=== PATIENT | female | born 1940 | race Hispanic/Latino ===

== ENCOUNTER → 2018-06-19 | Outpatient (CLI) | payer MEDICARE ==
[~2018-06-19] MED LIST: BENZ-51 PO; CETI10TA57 PO; CHOL20004 PO; DICL50TA7 PO; DULO60CA63 PO; ESOM40CA PO; FESO8TAB PO; IBUP-2070 PO; IPRA4AER IH; LEVO50 PO; MEMA1TAB2 PO; METO-409 PO; MONT10TA24 PO; SIMV20TA6 PO
== END | disposition home or self-care (01) ==
LOC: RAH 14:29
PROVIDERS: ATTEND Orthopaedic Surgery
DX: M71.22 Synovial cyst of popliteal space [Baker], left knee (principal); M23.92 Unspecified internal derangement of left knee; I10 Essential (primary) hypertension; E78.5 Hyperlipidemia, unspecified; E78.00 Pure hypercholesterolemia, unspecified; E03.9 Hypothyroidism, unspecified
CPT/HCPCS: 73721

== ENCOUNTER → 2018-07-11 | Outpatient (CLI) | payer MEDICARE | END | disposition home or self-care (01) | LOC: SHCH 13:50 | PROVIDERS: ATTEND Internal Medicine Cardiovascular Disease | DX: I65.23 Occlusion and stenosis of bilateral carotid arteries (principal) | CPT/HCPCS: 93880 ==

== ENCOUNTER → 2019-06-26 | Outpatient (CLI) | payer MEDICARE ==
[~2019-06-26] MED LIST changes: -DULO60CA63 PO; +DULO60CA64 PO
== END | disposition home or self-care (01) ==
LOC: SHCH 10:15
PROVIDERS: ATTEND Internal Medicine Cardiovascular Disease
DX: I73.9 Peripheral vascular disease, unspecified (principal); I87.2 Venous insufficiency (chronic) (peripheral); K21.9 Gastro-esophageal reflux disease without esophagitis
CPT/HCPCS: 93925; 93970

== ENCOUNTER → 2019-07-28 | Outpatient (CLI) | payer MEDICARE ==
[~2019-07-28] MED LIST changes: +SIMV-43 PO; -SIMV20TA6 PO
== END | disposition home or self-care (01) ==
LOC: SHCH 10:10
PROVIDERS: ATTEND Internal Medicine Cardiovascular Disease
DX: I48.0 Paroxysmal atrial fibrillation (principal)
CPT/HCPCS: 93306

== ENCOUNTER 2019-09-02 11:02 | Emergency (ER) | payer MEDICARE ==
[~2019-09-02 11:02] MED LIST changes: -AMINOPHYLLINE 250MG/10 ML VIAL IV SCH; -REGADENOSON 0.4 MG/5 ML PF SYG IVP SCH
[2019-09-02 11:26] LABS: BASOPHILS % (AUTO) 0.9 % (0.0-5.0); EOSINOPHILS % (AUTO) 5.5 % (0.0-8.0); HEMATOCRIT 38.7 % (36-48); LYMPHOCYTES % (AUTO) 22.8 % (21.0-51.0); MEAN CORPUSCULAR HEMOGLOBIN 29.8 pg (27.0-33.0); MEAN CORPUSCULAR HGB CONC 32.8 g/dL (32.0-36.0); MEAN CORPUSCULAR VOLUME 90.8 fL (79-99); MONOCYTES % (AUTO) 9.6 % (3.0-13.0); NEUTROPHILS % (AUTO) 60.7 % (40.0-77.0); PLATELET COUNT (AUTO) 249 K/uL (130-400); RED BLOOD CELL COUNT(AUTO) 4.26 MIL/uL (4.00-5.50); RED CELL DISTRIBUTION WIDTH 13.1 % (11.0-15.5); WHITE BLOOD COUNT (AUTO) 7.8 K/uL (4.8-10.8)
[2019-09-02 11:32] LABS: CREATININE 0.7 mg/dL (0.5-1.5); POTASSIUM 3.5 mmol/L (3.5-5.1)
[2019-09-02 11:38] LABS: ALBUMIN 3.6 g/dL (3.5-5.0); BILIRUBIN,TOTAL 0.3 mg/dL (0.2-1.0); TOTAL PROTEIN, SERUM 7.7 g/dL (6.0-8.3)
[2019-09-02 11:41] LABS: INR 0.97 (0.85-1.15); PARTIAL THROMBOPLASTIN TIME 25.4 SEC (26.3-35.5); PROTHROMBIN TIME 10.2 SEC (9.6-11.6)
== END 2019-09-02 15:39 | disposition home or self-care (01) ==
LOC: EDH 11:02
DX: R00.2 Palpitations (principal); I10 Essential (primary) hypertension; E78.5 Hyperlipidemia, unspecified; E05.90 Thyrotoxicosis, unspecified without thyrotoxic crisis or storm; K21.9 Gastro-esophageal reflux disease without esophagitis; M19.90 Unspecified osteoarthritis, unspecified site; Z90.49 Acquired absence of other specified parts of digestive tract; Z90.710 Acquired absence of both cervix and uterus; Z98.890 Other specified postprocedural states; Z88.5 Allergy status to narcotic agent; Z88.1 Allergy status to other antibiotic agents
CPT/HCPCS: 36415; 71045; 80053; 82550; 83880; 84484; 85025; 85610; 85730; 93005

== ENCOUNTER → 2019-09-02 | Outpatient (CLI) | payer MEDICARE ==
[2019-09-02] VITALS (10 sets, daily range): BP systolic 128–163; BP diastolic 61–84
[~2019-09-02] VITALS: Ht 152.4 cm; Wt 74.8 kg
[~2019-09-02] MED LIST changes: +AMINOPHYLLINE 250MG/10 ML VIAL IV SCH; +REGADENOSON 0.4 MG/5 ML PF SYG IVP SCH
--- NOTE | 2019-09-02 14:56 | NUR ---
APPROXIMATELY 3 MIN AFTER ADMINISTRATION OF LEXISCAN, PT PRESENTED WITH SEIZURE LIKE MOVEMENTS. I ADMINISTERED 25MG OF AMINOPHYLLINE IV OVER 60 SECONDS AT 1032. SHAKING STOPPED FOR A BRIEF PERIOD, ABOUT 45 SECONDS, AND THEN BEGAN AGAIN NON STOP. I ADMINISTERED A SECOND DOSE OF AMINOPHYLLINE 25MG IV OVER 60 SECONDS AT 1034. THERE WAS NO CHANGE IN THE SEIZURE LIKE MOVEMENTS NOTED. THE PT REMAINED ALERT AND ORIENTED WITH ALL VITAL SIGNS STABLE, THERE WERE NO C/O PAIN OR DISCOMFORT. THE PATIENTS DAUGHTER WAS PRESENT AT THE BEDSIDE DURING THE ENTIRE EVENT. 911 WAS CALLED AND EMS ARRIVED 13 MIN AFTER LEXISCAN WAS GIVEN. PT WAS TAKEN TO THE ER AT [facility] [place] PER EMS AT 1045
== END | disposition home or self-care (01) ==
LOC: SHCH 07:56
PROVIDERS: ATTEND Internal Medicine Cardiovascular Disease
DX: R06.09 Other forms of dyspnea (principal); I48.0 Paroxysmal atrial fibrillation
CPT/HCPCS: 78452; 93017; 96374; A9500 ×2; J2785; J0280

== ENCOUNTER 2020-07-16 11:53 | Day surgery (SDC) | payer MEDICARE ==
[2020-07-15 13:57] VITALS: BP 123/53
[~2020-07-16] VITALS: Ht 154.9 cm; Wt 72.4 kg
[2020-07-16] VITALS (11 sets, daily range): BP systolic 133–153; BP diastolic 61–77
[~2020-07-16 11:53] MED LIST changes: -MONT10TA24 PO; +MONT10TA26 PO
--- NOTE | 2020-07-16 12:20 | NUR ---
preop pt laying in stretcher in no distress. pt very forgetful. daughter called in to stay with pt for interview. pt oriented to room and call light. will continue to monitor pt.
[2020-07-16] MEDS ORDERED: LACTATED RINGERS 1000ML 1,000 ML IV ONE (12:53)
[2020-07-16] MEDS ORDERED: IOPAMIDOL 10 ML VIAL ONE (12:59)
[2020-07-16] MEDS ORDERED: MIDAZOLAM HCL 1 MG/ML 2ML VIAL ONE (13:11)
[2020-07-16] MEDS ORDERED: BUPIVACAINE/PF 0.25% 30ML VIAL IJ ONE (13:13)
[2020-07-16] MEDS ORDERED: LIDOCAINE HCL 1% 20 ML VIAL ONE (13:13)
[2020-07-16] MEDS ORDERED: MIRA50TA PO (13:50)
[2020-07-16] MEDS ORDERED: MIRT15TA6 PO (13:50)
[2020-07-16] MEDS ORDERED: LOSA25TA41 PO (13:50)
[2020-07-16] MEDS ORDERED: SOLI10TA PO (13:50)
[2020-07-16] MEDS ORDERED: MEMA10TA55 PO (13:50)
[2020-07-16] MEDS ORDERED: PRAV20TA4 PO (13:50)
[2020-07-16] MEDS ORDERED: QUET50TA79 PO (13:50)
[2020-07-16] MEDS ORDERED: ASPI-1197 PO (13:50)
[2020-07-16] MEDS ORDERED: LINA145C PO (13:50)
[2020-07-16] MEDS ORDERED: FAMO40TA7 PO (13:50)
[2020-07-16] MEDS ORDERED: RIVA4.5C13 PO (13:50)
--- NOTE | 2020-07-16 14:35 | NUR ---
DAY PT ARRIVAL PT IN STRETCHER IN NO APPARENT DISTRESS, DAUGHTER CALLED TO BEDSIDE.
--- NOTE | 2020-07-16 15:10 | NUR ---
DAY PT DC PT WHEELED TO FRONT ER LOBBY, INSTRUCTIONS GIVEN TO FAMILY AND PT.
== END 2020-07-16 15:15 ==
LOC: DAH 11:53
PROVIDERS: ATTEND Family Medicine Sports Medicine
DX: M46.1 Sacroiliitis, not elsewhere classified (principal); Z20.828 Contact with and (suspected) exposure to other viral communicable diseases; M16.0 Bilateral primary osteoarthritis of hip; M53.3 Sacrococcygeal disorders, not elsewhere classified; M76.32 Iliotibial band syndrome, left leg; M70.62 Trochanteric bursitis, left hip; I10 Essential (primary) hypertension; E03.9 Hypothyroidism, unspecified; E78.5 Hyperlipidemia, unspecified; K21.9 Gastro-esophageal reflux disease without esophagitis; M19.90 Unspecified osteoarthritis, unspecified site; I48.91 Unspecified atrial fibrillation; Z98.890 Other specified postprocedural states; Z90.710 Acquired absence of both cervix and uterus; Z90.49 Acquired absence of other specified parts of digestive tract; Z79.899 Other long term (current) drug therapy
CPT/HCPCS: 36415; 72202; 93005; A4215 ×2; A4216; A4221; A4222; A4223 ×2; A4663; A6260; C9803; G0260; J1040; J2250; J3490; J7120; Q9966; U0003

== ENCOUNTER → 2022-08-01 | Outpatient (CLI) | payer MEDICARE ==
[~2022-08-01] MED LIST changes: +ASPI-1197 PO; -BENZ-51 PO; -CHOL20004 PO; -DICL50TA7 PO; +FAMO40TA7 PO; -FESO8TAB PO; -IBUP-2070 PO; -IPRA4AER IH; +LINA145C PO; +LOSA25TA41 PO; +MEMA10TA55 PO; -MEMA1TAB2 PO; -METO-409 PO; +MIRA50TA PO; +MIRT-22 PO; -MONT10TA26 PO; +PRAV20TA4 PO; +QUET50TA79 PO; +RIVA4.5C17 PO; -SIMV-43 PO; +SOLI10TA PO
== END | disposition home or self-care (01) ==
LOC: SHCH 13:31
PROVIDERS: ATTEND Internal Medicine Cardiovascular Disease
DX: R06.09 Other forms of dyspnea (principal); R07.9 Chest pain, unspecified
CPT/HCPCS: 93306

== ENCOUNTER → 2023-02-17 | Outpatient (CLI) | payer MEDICARE ==
[~2023-02-17] MED LIST changes: -QUET50TA79 PO; +QUET50TA93 PO
== END | disposition home or self-care (01) ==
LOC: SHCH 12:30
PROVIDERS: ATTEND Internal Medicine Cardiovascular Disease
DX: I87.2 Venous insufficiency (chronic) (peripheral) (principal)
CPT/HCPCS: 93970

== ENCOUNTER → 2023-09-12 | Outpatient (CLI) | payer OTHER, MEDICARE | END | disposition home or self-care (01) | LOC: RAH 07:00 | PROVIDERS: ATTEND Internal Medicine | DX: R63.4 Abnormal weight loss (principal) | CPT/HCPCS: 78264; A9541 ==

== ENCOUNTER → 2023-09-13 | Outpatient (CLI) | payer OTHER, MEDICARE | END | disposition home or self-care (01) | LOC: RAH 08:36 | PROVIDERS: ATTEND Internal Medicine | DX: K21.9 Gastro-esophageal reflux disease without esophagitis (principal); R63.4 Abnormal weight loss; R11.0 Nausea; Z90.49 Acquired absence of other specified parts of digestive tract | CPT/HCPCS: 74240 ==

== ENCOUNTER 2023-09-20 05:52 | Day surgery (SDC) | payer OTHER, MEDICARE ==
[~2023-09-20] VITALS: Ht 152.4 cm; Wt 61.2 kg
[2023-09-20] VITALS (9 sets, daily range): BP systolic 93–119; BP diastolic 37–52; PULSE 58–70; RESP 12–15
[~2023-09-20 05:52] MED LIST changes: -ASPI-1197 PO; -CETI10TA57 PO; -DULO60CA64 PO; -LINA145C PO; +LOPE2 PO; -LOSA25TA41 PO; -MEMA10TA55 PO; +METO-296 PO; +METO-408 PO; -MIRA50TA PO; -PRAV20TA4 PO; +PROM25TA7 PO; -QUET50TA93 PO; -RIVA4.5C17 PO; -SOLI10TA PO
[2023-09-20] MEDS ORDERED: 0.9%NACL 1000ML 1,000 ML IV ONE (06:16)
[2023-09-20] MEDS ORDERED: PROPOFOL 10 MG/ML 20ML VIAL IV ONE (07:12)
[2023-09-20] MEDS ORDERED: LIDOCAINE HCL 1% 20 ML VIAL ONE (07:12)
[2023-09-25] MEDS ORDERED: NITR100C9 PO (20:38)
== END 2023-09-20 08:35 | disposition home or self-care (01) ==
LOC: DAH 05:52 → ENDO 05:52
PROVIDERS: ATTEND Internal Medicine
DX: R63.4 Abnormal weight loss (principal); K29.50 Unspecified chronic gastritis without bleeding; K21.9 Gastro-esophageal reflux disease without esophagitis; R63.8 Other symptoms and signs concerning food and fluid intake; R63.0 Anorexia; K59.04 Chronic idiopathic constipation; K57.30 Diverticulosis of large intestine without perforation or abscess without bleeding; I10 Essential (primary) hypertension; E78.5 Hyperlipidemia, unspecified; F32.A Depression, unspecified; I25.10 Atherosclerotic heart disease of native coronary artery without angina pectoris; Z86.010 Personal history of colon polyps; Z88.5 Allergy status to narcotic agent; Z98.890 Other specified postprocedural states; Z87.19 Personal history of other diseases of the digestive system; Z82.49 Family history of ischemic heart disease and other diseases of the circulatory system; Z80.9 Family history of malignant neoplasm, unspecified; Z79.899 Other long term (current) drug therapy; Z90.49 Acquired absence of other specified parts of digestive tract; Z90.710 Acquired absence of both cervix and uterus; Z88.8 Allergy status to other drugs, medicaments and biological substances; Z79.82 Long term (current) use of aspirin; Z88.6 Allergy status to analgesic agent; Z68.24 Body mass index [BMI] 24.0-24.9, adult
CPT/HCPCS: 43239; J7030 ×2; J2704; A4620; A4215 ×2; A4223; A7002; A4222; A4221; A4663; A4606; J3490

== ENCOUNTER 2023-10-21 17:11 | Emergency (ER) | payer OTHER, MEDICARE ==
[~2023-10-21] VITALS: Ht 160 cm; Wt 59.0 kg
[~2023-10-21 17:11] MED LIST changes: +POTA20PA32 PO
[2023-10-21 17:18] VITALS: BP 106/54; PULSE 80; RESP 16
[2023-10-21] MEDS ORDERED: ACETAMINOPHEN 500 MG TABLET PO ONE (19:00)
== END 2023-10-21 20:36 | disposition home or self-care (01) ==
LOC: EDH 17:11
DX: S16.1XXA Strain of muscle, fascia and tendon at neck level, initial encounter (principal); S00.83XA Contusion of other part of head, initial encounter; I10 Essential (primary) hypertension; E03.9 Hypothyroidism, unspecified; F03.90 Unspecified dementia, unspecified severity, without behavioral disturbance, psychotic disturbance, mood disturbance, and anxiety; I48.91 Unspecified atrial fibrillation; J44.9 Chronic obstructive pulmonary disease, unspecified; K21.9 Gastro-esophageal reflux disease without esophagitis; M47.812 Spondylosis without myelopathy or radiculopathy, cervical region; Z79.899 Other long term (current) drug therapy; Z90.49 Acquired absence of other specified parts of digestive tract; Z90.710 Acquired absence of both cervix and uterus; Z98.890 Other specified postprocedural states; Z88.0 Allergy status to penicillin; Z88.1 Allergy status to other antibiotic agents; Z88.5 Allergy status to narcotic agent; W06.XXXA Fall from bed, initial encounter; Y93.89 Activity, other specified; Y92.89 Other specified places as the place of occurrence of the external cause; Y99.8 Other external cause status
CPT/HCPCS: 70450; 72125

== ENCOUNTER 2024-07-01 10:04 | Day surgery (SDC) | payer OTHER, MEDICARE ==
[2024-07-01] VITALS (11 sets, daily range): BP systolic 122–167; BP diastolic 41–79; PULSE 58–78; RESP 15–18; TEMP 96.6–97.9
[~2024-07-01] VITALS: Ht 154.9 cm; Wt 71.2 kg
[2024-07-01] MEDS ORDERED: DONE5TAB33 PO (10:31)
[2024-07-01] MEDS ORDERED: ALBU18HF7 IH (10:31)
[2024-07-01] MEDS ORDERED: ACET-2893 PO (10:31)
[2024-07-01] MEDS ORDERED: METO-408 PO (10:31)
[2024-07-01] MEDS ORDERED: MIRA50TA PO (10:31)
[2024-07-01] MEDS ORDERED: METO5TAB2 PO (10:31)
[2024-07-01] MEDS ORDERED: DICY20TA3 PO (10:31)
[2024-07-01] MEDS ORDERED: PRAV20TA4 PO (10:31)
[2024-07-01] MEDS ORDERED: proPOFol 10 MG/ML 20ML VIAL IV ONE (11:52)
== END 2024-07-01 13:24 | disposition home or self-care (01) ==
LOC: DAH 10:04 → ENDO 10:04
PROVIDERS: ATTEND Internal Medicine
DX: R13.12 Dysphagia, oropharyngeal phase (principal); K94.20 Gastrostomy complication, unspecified; R14.0 Abdominal distension (gaseous); K31.84 Gastroparesis; K59.04 Chronic idiopathic constipation; K57.30 Diverticulosis of large intestine without perforation or abscess without bleeding; I10 Essential (primary) hypertension; F03.90 Unspecified dementia, unspecified severity, without behavioral disturbance, psychotic disturbance, mood disturbance, and anxiety; E78.5 Hyperlipidemia, unspecified; F32.A Depression, unspecified; K21.9 Gastro-esophageal reflux disease without esophagitis; Z88.0 Allergy status to penicillin; Z88.1 Allergy status to other antibiotic agents; Z88.5 Allergy status to narcotic agent; Z90.49 Acquired absence of other specified parts of digestive tract; Z90.710 Acquired absence of both cervix and uterus; Z79.899 Other long term (current) drug therapy
CPT/HCPCS: 43246; J2704; A4620; A4215 ×2; A4223; A4657; A4222; A4221; A4663; J7030; A4606; J3490

== ENCOUNTER → 2025-03-04 | Outpatient (CLI) | payer OTHER, MEDICAID ==
[~2025-03-04] MED LIST changes: +ACET-2893 PO; +ALBU18HF7 IH; +DICY20TA3 PO; +DONE5TAB33 PO; -LOPE2 PO; -METO-296 PO; +METO5TAB2 PO; +MIRA50TA PO; -POTA20PA32 PO; +PRAV20TA4 PO; -PROM25TA7 PO
--- NOTE | 2025-03-04 13:33 | HMCIMG ---
Nuclear medicine gastric emptying study HISTORY: Gastroparesis. COMPARISON: No relevant prior studies. RADIOPHARMACEUTICAL: 1 mCi of technetium 99 sulfur colloid TECHNIQUE: Dynamic computer imaging and serial static images were performed over the anterior abdomen for 1 hour. Static images obtained up to 2 hours. By region of interest computer analysis, a time/activity curve for the stomach was generated and a T 1/2 for clearance of activity was determined. FINDINGS: Review of dynamic images does not demonstrate any gastroesophageal reflux. The normal pattern of gastric emptying is appreciated. T 1/2: 434 minutes (normal 55-90 minutes). Percent empty at 1 hour: 13 percent (less than 40 percent at one hour is consistent with delayed emptying). IMPRESSION: Gastroparesis
== END | disposition home or self-care (01) ==
LOC: RAH 10:38
PROVIDERS: ATTEND Internal Medicine Gastroenterology
DX: K31.84 Gastroparesis (principal); R68.81 Early satiety
CPT/HCPCS: 78264; A9541

== ENCOUNTER → 2025-07-26 | Emergency (ER) | payer OTHER, MEDICAID ==
[~2025-07-26] VITALS: Ht 157.5 cm; Wt 77.1 kg
[~2025-07-26] MED LIST changes: -ACET-2893 PO; +ACET-3797 PO; +METH-662 PO; -PRAV20TA4 PO; +PRAV20TA59 PO
--- NOTE | 2025-07-26 21:59 | HMCIMG ---
EXAM: CT Head Without IV contrast. CLINICAL HISTORY: Patient presents after a fall with a forehead hematoma. TECHNIQUE: Axial computed tomography images of the head/brain without intravenous contrast. COMPARISON: None provided. FINDINGS: BRAIN: Diffuse cerebral atrophy is characterized by prominent cortical sulci, basal cisterns, and bilateral sylvian fissures. Periventricular hypodensities are concerning for chronic microangiopathic ischemic changes. No acute hemorrhage, mass lesion, or CT evidence of acute territorial infarct. No midline shift or extra-axial collection. VENTRICLES: No hydrocephalus. ORBITS: Unremarkable. SINUSES AND MASTOIDS: The paranasal sinuses and mastoid air cells are clear. BONES: No fracture. SOFT TISSUES: Left frontal scalp hematoma measuring 0.7 cm. IMPRESSION: No acute intracranial abnormality. Left frontal scalp hematoma measuring 0.7 cm. Diffuse cerebral atrophy with mild chronic small vessel ischemic disease. /[place]
[2025-07-26] MEDS: LIDOCAINE HCL 1% 20 ML VIAL INJ ONE (22:02)
--- NOTE | 2025-07-26 22:08 | NUR ---
FINGER SPLINTED, PT TOLERATED WELL
--- NOTE | 2025-07-26 22:18 | HMCIMG ---
EXAM: CT Cervical Spine Without IV contrast. CLINICAL HISTORY: Patient presents after a fall with a forehead hematoma. TECHNIQUE: Axial computed tomography images of the cervical spine without intravenous contrast. Sagittal and coronal reformatted images were generated. COMPARISON: None provided. FINDINGS: ALIGNMENT: Bony alignment is anatomic. DEGENERATIVE CHANGES: Multilevel mild spondylotic changes with small marginal osteophytes at multiple levels, uncovertebral hypertrophy, and facet joint arthropathy. Anterior cervical fixation at the C5???C6 level with an intervertebral disc spacer in place at the C5???C6 intervertebral disc space. Partial fusion of the C6 and C7 vertebrae with a rudimentary C6???C7 intervertebral disc. Degenerative calcification along the atlantoaxial joint, posterior margin of the odontoid process, cruciform ligament, and tectorial membrane. Nuchal and supraspinous ligament calcification at the C7???T1 level. SOFT TISSUES: The prevertebral soft tissues are within normal limits. Degenerative calcifications are noted in the bilateral temporomandibular joint discs. BONES: No acute fracture or aggressive-appearing osseous lesion. IMPRESSION: No acute cervical spine fracture or malalignment. Postsurgical anterior cervical fixation at the C5???C6 level with an intervertebral disc spacer in place. Partial fusion of the C6 and C7 vertebrae with a rudimentary C6???C7 intervertebral disc. Multilevel mild cervical spondylosis with uncovertebral hypertrophy and facet arthropathy. Degenerative calcification along the atlantoaxial joint and associated ligaments. /[place]
--- NOTE | 2025-07-26 23:11 | HMCIMG ---
EXAM: CR Left Wrist, 3 views. CLINICAL HISTORY: Trauma. COMPARISON: None provided. FINDINGS: No acute fracture or aggressive appearing osseous lesion. The carpal bones demonstrate normal alignment. Mild osteoarthritis. Diffuse osteopenia. Articular cartilage calcification in the radiocarpal and intercarpal joints. The soft tissues are unremarkable. IMPRESSION: 1. No acute fracture or aggressive osseous lesion. 2. Mild osteoarthritis with diffuse osteopenia. 3. Articular cartilage calcification in the radiocarpal and intercarpal joints. /[place]
--- NOTE | 2025-07-26 23:14 | HMCIMG ---
EXAM: CR Left Hand, 3 views. CLINICAL HISTORY: Trauma, to rule out a fifth finger fracture. COMPARISON: None provided. FINDINGS: Anterior subluxation of the proximal interphalangeal joint of the fifth digit. No acute fracture or aggressive appearing osseous lesion. Mild osteoarthritis and diffuse osteopenia. Articular cartilage calcification in the radiocarpal, intercarpal, and 1st to 3rd metacarpophalangeal joints. The soft tissues are unremarkable. IMPRESSION: 1. Anterior subluxation of the proximal interphalangeal joint of the fifth digit. 2. No acute fracture or aggressive appearing osseous lesion. 3. Mild osteoarthritis and diffuse osteopenia. 4. Articular cartilage calcification in the radiocarpal, intercarpal, and 1st to 3rd metacarpophalangeal joints. /[place]
--- NOTE | 2025-07-26 23:25 | ERN ---
General Chief Complaint: Mechanical Fall Stated Complaint: FALL Time Seen by MD: 21:08 History of Present Illness Initial Comments Patient is an 85-year-old female with a extensive past medical history here for evaluation of a witnessed fall at home. As per daughter who was at bedside, patient was getting up and walking when she had a mechanical fall tripped and fell forward hitting her head on the floor. States that she did not lose consciousness and cried immediately at that time. She presents today with a left forehead injury as well as a left 5th finger pain/dislocation. This incident happened just prior to arrival. No fever no cough no shortness a breath. No nausea vomiting diarrhea. No dizziness prior to the fall. Allergies: Coded Allergies: Penicillins (Unverified Allergy, Mild, RASH, 09/25/23) codeine (Verified Allergy, Unknown, 09/25/23) levofloxacin (Verified Allergy, Unknown, 09/25/23) Home Meds Reported Medications Albuterol Sulfate (Ventolin Hfa) 90 Mcg Hfa.aer.ad, 18 GM IH AM, INHALER 07/01/24 Mirabegron (Myrbetriq) 50 Mg Tab.er.24h, 50 MG PO HS, TAB 07/01/24 Pravastatin Sodium (Pravastatin Sodium) 20 Mg Tablet, 20 MG PO AM, TAB 07/01/24 Donepezil HCl (Donepezil HCl) 5 Mg Tablet, 5 MG PO AM, TAB 07/01/24 Acetaminophen (Acetaminophen ER) 650 Mg Tablet.er, 650 MG PO BID, TAB 07/01/24 Dicyclomine HCl (Dicyclomine HCl) 20 Mg Tablet, 20 MG PO QID, TAB 07/01/24 Metoprolol Succinate (Metoprolol Succinate) 25 Mg Tab.er.24h, 25 MG PO AM, TAB 07/01/24 Metoclopramide HCl (Metoclopramide HCl) 5 Mg Tablet, 5 MG PO BID, TAB 07/01/24 Mirtazapine (Mirtazapine) 15 Mg Tablet, 15 MG PO HS, TAB 07/16/20 Famotidine (Famotidine) 40 Mg Tablet, 40 MG PO HS, TAB 07/16/20 Esomeprazole Magnesium (Nexium) 40 Mg Capsule.dr, 40 MG PO AM, CAP 02/12/16 Levothyroxine Sodium (Levothroid/Synthroid) 50 Mcg Tab, 25 MCG PO ACBKFST, TAB 02/12/16 Past Medical History Past Medical History: A-Fib, Anxiety, Bipolar, COPD, Dementia, Depression, Diverticulitis, GERD, High Cholesterol, Hypertension, Hypothyroid, Renal Disese, UTI Medical History Other: CHRONIC PAIN, NEUROPATHY, GASTROPARESIS,FEEDING TUBE Past Surgical History: Hysterectomy, Cholecystectomy Surgical History Other: BACK, COLON RESECTION, CATARACT,LT HAND, NECK, LT ANKLE, SPINX2, B SHOULDER Female( History) History: Not Applicable Review of Systems: was completed, & the rest were negative. Physical Exam General Appearance: (+) no apparent distress Orientation: (+) alert Head/Face Trauma: Yes (Left forehead shows a 3 x 4-1/2 cm area of ecchymosis with tenderness to palpation. No underlying crepitus. No active bleeding.) Eye: bilateral eye normal inspection, bilateral eye PERRL, bilateral eye EOMI Ear, Nose, Throat: (+) hearing grossly normal, (+) normal ENT inspection, (+) moist mucous membraine, (+) normal pharynx Neck: (+) normal inspection, (+) supple Respiratory: (+) chest non-tender, (+) lungs clear Heart: (+) regular; (-) murmur Gastrointestinal: (+) soft, (+) non-tender Extremities: (+) other (Left 5th finger noted to have mild medial deviation at the area of the phalanges. Ecchymosis noted) Neurologic/Psychiatric: (+) normal speech, (+) no motor defecits MDM 85-year-old female here for evaluation of fall. She is noted to have a contusion/ecchymosis to her forehead and a left finger injury. CT head negative. CT C-spine negative. The C-spine was cleared by me. We will discharge home at this time. We will also give appropriate pain medication here. ED Course Orders Procedure Category Date Status Time Hand 3+Vws Lt RAD 07/26/25 Taken 21:12 Wrist Comp 3+Vws Lt RAD 07/26/25 Resulted 21:12 Ct Head/Brain W/O CT 07/26/25 Resulted Contrast 21:12 Ct Cervical Spine W/O CT 07/26/25 Resulted Contrast 21:12 Acetaminophen 500mg PHA 07/26/25 Complete Tab (Tylenol 500mg T 21:30 Lidocaine Hcl 1% 20ml PHA 07/26/25 Complete Vial (Lidocaine Hc 22:00 Finger(S) 2+Vws Lt RAD 07/26/25 Taken 22:05 Lidocaine (Lidoderm PHA 07/26/25 Logged Patch 5%) 23:30 Methocarbamol PHA 07/26/25 Logged (Methocarbamol) 23:30 Current Medications Medications (Trade) Dose Ordered Sig/[place] Route PRN Reason Start Time Stop Time Status Last Admin Dose Admin Acetaminophen (TYLenol 500MG TAB) 500 mg ONCE ONCE PO 07/26/25 21:30 07/26/25 21:31 DC 07/26/25 21:32 Lidocaine (Lidoderm Patch 5%) 1 patch ONCE ONCE TP 07/26/25 23:30 07/26/25 23:31 UNV Lidocaine HCl (Lidocaine HCl 1% 20ml Vial) ONCE ONCE INJ 07/26/25 22:00 07/26/25 22:01 DC 07/26/25 22:02 Methocarbamol (methoCARBamol) 750 mg ONCE PO 07/26/25 23:30 08/25/25 23:29 UNV Vital Signs Date Time Temp Pulse Resp B/P (MAP) Pulse Ox O2 Delivery O2 Flow Rate FiO2 07/26/25 22:27 97.9 71 16 152/64 97 Room Air* 0 21 07/26/25 21:26 97.9 69 16 165/62 97 Room Air* 0 21 07/26/25 20:48 97.9 69 16 165/62 97 Room Air Procedure Dictation Left finger 5th phalanges dislocation noted on x-ray. I reduced the finger after cleaning the area and injecting lidocaine. Digital block was performed which achieved appropriate pain control. The finger was put back in place and repeat x-ray was shown to note the finger back in place. Nervously intact distal to injury. Patient tolerated procedure well. Patient was splinted for protection DX & DISP Disposition: Discharge Departure Impression: Primary Impression: Cervical strain Additional Impressions: Fall, Closed head injury, Finger dislocation Condition: Stable Scripts Methocarbamol (Robaxin) 750 Mg Tab 1 TAB PO TID for pain for 10 Days, #30 TAB 0 Refills Prov: RHEA FRANKS MD 07/26/25 Referrals: CHRISTINA JAVIER M.D. (PCP) RHEA FRANKS MD Jul 26, 2025 23:25
[2025-07-26] MEDS: LIDOCAINE 5% TOPICAL PATCH TP ONE (23:33)
--- NOTE | 2025-07-26 23:38 | HMCIMG ---
EXAM: CR Left Little Finger, 2 views. CLINICAL HISTORY: Post reduction x-ray. COMPARISON: Radiograph done on the same date at 21:41 EDT. FINDINGS: Normally aligned little finger. Interval resolution of the subluxation at the proximal interphalangeal joint of the little finger. No acute fracture or aggressive appearing osseous lesion. Mild osteoarthritis and diffuse osteopenia. The soft tissues are unremarkable. IMPRESSION: Normally aligned little finger. Interval resolution of the subluxation at the proximal interphalangeal joint of the little finger /[place]
[2025-07-26 23:49] VITALS: BP 143/60; PULSE 75; RESP 18; TEMP 97.9; O2SAT 97
== END ==
LOC: EDH 20:38
DX: S62.617A Displaced fracture of proximal phalanx of left little finger, initial encounter for closed fracture (principal); S16.1XXA Strain of muscle, fascia and tendon at neck level, initial encounter; S00.03XA Contusion of scalp, initial encounter; S00.83XA Contusion of other part of head, initial encounter; E03.9 Hypothyroidism, unspecified; F31.9 Bipolar disorder, unspecified; F03.93 Unspecified dementia, unspecified severity, with mood disturbance; F03.94 Unspecified dementia, unspecified severity, with anxiety; G89.29 Other chronic pain; E78.00 Pure hypercholesterolemia, unspecified; I48.91 Unspecified atrial fibrillation; I10 Essential (primary) hypertension; J44.9 Chronic obstructive pulmonary disease, unspecified; Z87.440 Personal history of urinary (tract) infections; Z88.0 Allergy status to penicillin; Z88.1 Allergy status to other antibiotic agents; Z88.5 Allergy status to narcotic agent; Z90.49 Acquired absence of other specified parts of digestive tract; Z90.710 Acquired absence of both cervix and uterus; W18.39XA Other fall on same level, initial encounter; Y93.01 Activity, walking, marching and hiking; Y92.89 Other specified places as the place of occurrence of the external cause; Y99.8 Other external cause status
CPT/HCPCS: 26770; 70450; 72125; 73110; 73130; 73140; 99284